=== PATIENT | female | born 1965 | race Caucasian/White ===

== ENCOUNTER 2017-05-14 12:17 | Day surgery (SDC) | payer OTHER ==
[~2017-05-14] VITALS: Ht 160 cm; Wt 104.3 kg
[~2017-05-14 12:17] MED LIST: Benztropine Mesy1 MG; DULO60; GABA100 PO; GLYBURIDE PO; Glucophage1000 MG PO; HYDPAM50 PO; INSULANPEN SC; METCAR500 PO; MIRT15 PO; RISP.25 PO
[2017-05-14] MEDS ORDERED: LOVA40 (12:44)
[2017-05-14] MEDS ORDERED: Levothyroxine200 MCG (12:45)
[2017-05-14] MEDS ORDERED: LAMO100 PO (12:45)
[2017-05-14] MEDS ORDERED: MULTI VITAMIN1 EACH (12:46)
[2017-05-14] MEDS ORDERED: Flovent 110 MCG12 GM (12:46)
[2017-05-14] MEDS ORDERED: CHOL10002 (12:46)
[2017-05-14] MEDS ORDERED: ALBU90OI61 (12:46)
[2017-05-14] MEDS ORDERED: FURO20 (12:47)
[2017-05-14] MEDS ORDERED: Lopressor 50 mg50 MG (12:48)
== END 2017-05-14 23:59 | disposition home or self-care (01) ==
LOC: ORSCSDS 12:17
PROVIDERS: Internal Medicine Gastroenterology
PROC: 0DBP8ZX Excision of Rectum, Via Natural or Artificial Opening Endoscopic, Diagnostic (ICD-10-PCS; principal; 2017-05-14 13:30)
PROC: 0DBN8ZX Excision of Sigmoid Colon, Via Natural or Artificial Opening Endoscopic, Diagnostic (ICD-10-PCS; principal; 2017-05-14 13:30)
DX: K92.1 Melena (principal); K62.1 Rectal polyp; K63.5 Polyp of colon; K64.8 Other hemorrhoids; E11.9 Type 2 diabetes mellitus without complications; E03.9 Hypothyroidism, unspecified; J45.909 Unspecified asthma, uncomplicated; F41.9 Anxiety disorder, unspecified; F31.9 Bipolar disorder, unspecified; Z87.891 Personal history of nicotine dependence; Z79.4 Long term (current) use of insulin; Z79.899 Other long term (current) drug therapy; E66.9 Obesity, unspecified; Z68.41 Body mass index [BMI] 40.0-44.9, adult
CPT/HCPCS: 82947; 88305; J7120

== ENCOUNTER 2017-05-16 16:20 | Emergency (ER) | payer OTHER ==
[~2017-05-16] VITALS: Ht 157.5 cm; Wt 104.3 kg
[~2017-05-16 16:20] MED LIST changes: +ALBU90OI61; +CHOL10002; +FURO20; +Flovent 110 MCG12 GM; +LAMO100 PO; +LOVA40; +Levothyroxine200 MCG; +Lopressor 50 mg50 MG; +MULTI VITAMIN1 EACH
[2017-05-16 16:43] LABS: BASOPHILS ABSOLUTE AUTO 0.05 K/mm3 (0.00-0.23); BASOPHILS PERCENT AUTO 1 % (0-2); EOSINOPHILS ABSOLUTE AUTO 0.13 K/mm3 (0.00-0.68); EOSINOPHILS PERCENT AUTO 2 % (0-6); Hematocrit 40.4 % (33.0-51.0); Hemoglobin 13.5 g/dL (11.5-16.0); IMMATURE GRAN ABSOLUTE AUTO 0.02 K/mm3 (0.00-0.10); IMMATURE GRAN PERCENT AUTO 0 % (0-1); LYMPHOCYTES ABSOLUTE AUTO 3.28 K/mm3 (0.84-5.20); LYMPHOCYTES PERCENT AUTO 42 % (21-46); MONOCYTES ABSOLUTE AUTO 0.53 K/mm3 (0.16-1.47); MONOCYTES PERCENT AUTO 7 % (4-13); Mean Corpuscular HGB 28.8 pg (26.0-34.0); Mean Corpuscular HGB Conc 33.4 g/dL (31.5-36.5); Mean Corpuscular Volume 86 fL (80-100); Mean Platelet Volume 9.6 fL (9.1-12.4); NEUTROPHILS ABSOLUTE AUTO 3.72 K/mm3 (1.96-9.15); NEUTROPHILS PERCENT AUTO 48 % (41-73); Platelet Count 348 K/mm3 (150-400); RDW Coefficient Variation 12.6 % (11.7-14.2); RDW Standard Deviation 39.7 fL (35.1-46.3); Red Blood Cell Count 4.68 M/mm3 (3.80-5.20); White Blood Cell Count 7.73 K/mm3 (4.00-11.30)
[2017-05-16 16:59] LABS: Alanine Aminotransfer (ALT/SGP 72 U/L (12-78); Alk Phos 93 U/L (50-136); Anion Gap 9 mmol/L (6-16); Aspartate Aminotrans (AST/SGOT 35 U/L (12-37); Bilirubin, Total 0.3 mg/dL (0.1-1.0); Blood Urea Nitrogen 19 mg/dL (8-24); Bun/Creatinine Ratio 20.2 (12.0-20.0); CO2, Blood 23 mmol/L (21-32); Chloride, Blood 104 mmol/L (98-108); Creatinine, Blood 0.94 mg/dL (0.40-1.00); Globulin, Blood 3.9 g/dL (2.2-4.0); Glomerular Filtration Rate >60 (60-); Glucose, Blood 161 mg/dL (70-99); Potassium, Blood 4.3 mmol/L (3.5-5.5); Sodium, Blood 136 mmol/L (136-145); Total Protein, Blood 7.9 g/dL (6.4-8.2)
[2017-05-16 18:40] LABS: Troponin I <0.015 ng/mL (0.000-0.040)
[2017-05-16 19:45] LABS: Source, Urine Clean Catch
[2017-05-16 19:50] LABS: Appearance, Urine Clear (Clear); Bilirubin, Urine Neg (Neg); Blood, Urine Neg (Neg); Color, Urine Yellow (P-Yellow); Glucose Qualitative, Urine Neg (Neg); Ketones, Urine Neg (Neg); Leukocyte Esterase, Urine 1+ (Neg); Nitrite, Urine Neg (Neg); Protein, Urine Neg (Neg); Urobilinogen, Urine NORM (Normal)
[2017-05-16 20:03] LABS: Bacteria Rare /hpf; Red Blood Cells, Urine 0-2 /hpf (0-2); Squamous Epithelial Cells Rare /hpf (Few); White Blood Cells, Urine 0-2 /hpf (0-5)
[2017-05-16 20:06] LABS: U Amphetamine Screen Not Detected; U Barbituate Screen Not Detected; U Benzodiazapine Screen Not Detected; U Buprenorphine Screen Not Detected; U Cannabinoids Screen Not Detected; U Cocaine Screen Not Detected; U Methadone Screen Not Detected; U Methamphetamine Screen Not Detected; U Opiates Screen Not Detected; U Oxycodone Screen Not Detected; U Phencyclidine Screen Not Detected; U Propoxyphene Screen Not Detected
== END 2017-05-16 22:29 | disposition home or self-care (01) ==
LOC: ER 16:20
PROVIDERS: Emergency Medicine
DX: R07.9 Chest pain, unspecified (principal); Z88.8 Allergy status to other drugs, medicaments and biological substances; Z88.5 Allergy status to narcotic agent; Z79.4 Long term (current) use of insulin; Z79.899 Other long term (current) drug therapy; Z87.891 Personal history of nicotine dependence
CPT/HCPCS: 36415; 71046; 80053; 81001; 83735; 84484; 85025; 85379; 93005; 93010; 96361; 96374; 96375; 99284; J1885; J2060; J7030

== ENCOUNTER 2017-07-17 12:40 | Emergency (ER) | payer OTHER ==
[~2017-07-17] VITALS: Ht 162.6 cm; Wt 101.2 kg
[2017-07-17] MEDS ORDERED: LISI20 PO (13:03)
[2017-07-17] MEDS ORDERED: BASAGLAR K100 UNIT/1 (13:04)
== END 2017-07-17 14:34 | disposition home or self-care (01) ==
LOC: ER 12:40
DX: S93.601A Unspecified sprain of right foot, initial encounter (principal); I10 Essential (primary) hypertension; E11.9 Type 2 diabetes mellitus without complications; E03.9 Hypothyroidism, unspecified; F31.9 Bipolar disorder, unspecified; F41.9 Anxiety disorder, unspecified; E78.00 Pure hypercholesterolemia, unspecified; Z88.8 Allergy status to other drugs, medicaments and biological substances; Z88.5 Allergy status to narcotic agent; Z79.899 Other long term (current) drug therapy; Z79.4 Long term (current) use of insulin; Z87.891 Personal history of nicotine dependence; W01.0XXA Fall on same level from slipping, tripping and stumbling without subsequent striking against object, initial encounter
CPT/HCPCS: 73630

== ENCOUNTER 2017-08-24 11:10 | Emergency (ER) | payer OTHER ==
[~2017-08-24] VITALS: Ht 160 cm; Wt 101.6 kg
[~2017-08-24 11:10] MED LIST changes: +BASAGLAR K100 UNIT/1; +LISI20 PO
[2017-08-24] MEDS ORDERED: NAPR500 PO (12:28)
[2017-08-24] MEDS ORDERED: Norco 5-325 Ta1 EACH PO (12:36)
[2017-08-24] MEDS ORDERED: Cyclobenzaprine5 MG PO (12:36)
== END 2017-08-24 12:45 | disposition home or self-care (01) ==
LOC: ER 11:10
DX: M79.661 Pain in right lower leg (principal); R20.0 Anesthesia of skin; M54.5 Low back pain; E11.9 Type 2 diabetes mellitus without complications; I10 Essential (primary) hypertension; E03.9 Hypothyroidism, unspecified; F31.9 Bipolar disorder, unspecified; F41.9 Anxiety disorder, unspecified; Z88.8 Allergy status to other drugs, medicaments and biological substances; Z88.5 Allergy status to narcotic agent; Z79.899 Other long term (current) drug therapy; Z79.4 Long term (current) use of insulin; Z87.891 Personal history of nicotine dependence
CPT/HCPCS: 99283

== ENCOUNTER 2017-09-02 17:09 | Emergency (ER) | payer OTHER ==
[~2017-09-02] VITALS: Ht 68.6 cm; Wt 105.7 kg
[~2017-09-02 17:09] MED LIST changes: +Cyclobenzaprine5 MG PO; +NAPR500 PO; +Norco 5-325 Ta1 EACH PO
[2017-09-02] MEDS ORDERED: Naprosyn500 MG PO (19:47)
[2017-09-02] MEDS ORDERED: Percocet 5-3251 EACH PO (19:47)
== END 2017-09-02 20:13 | disposition home or self-care (01) ==
LOC: ER 17:09
DX: M54.5 Low back pain (principal); Q72.91 Unspecified reduction defect of right lower limb; E11.9 Type 2 diabetes mellitus without complications; I10 Essential (primary) hypertension; E03.9 Hypothyroidism, unspecified; F32.9 Major depressive disorder, single episode, unspecified; F41.9 Anxiety disorder, unspecified; Z88.8 Allergy status to other drugs, medicaments and biological substances; Z88.5 Allergy status to narcotic agent; Z79.899 Other long term (current) drug therapy; Z79.4 Long term (current) use of insulin; Z87.891 Personal history of nicotine dependence; W19.XXXA Unspecified fall, initial encounter
CPT/HCPCS: 36415; 72100; 96374; 96375; 99284; J1200; J2765; J3010

== ENCOUNTER → 2018-09-13 | Outpatient (CLI) | payer OTHER ==
[~2018-09-13] MED LIST changes: +Naprosyn500 MG PO; +Percocet 5-3251 EACH PO
== END | disposition home or self-care (01) ==
LOC: LAB SHORT 13:01 → LAB EV 13:01
DX: N39.0 Urinary tract infection, site not specified (principal)
CPT/HCPCS: 87077; 87086; 87186

== ENCOUNTER 2020-05-07 12:02 | Inpatient (IN) | payer OTHER ==
[~2020-05-07] VITALS: Ht 160 cm; Wt 127.3 kg
[~2020-05-07 12:02] MED LIST changes: -ALBU90OI61; -BASAGLAR K100 UNIT/1; -CHOL10002; -DULO60; -Flovent 110 MCG12 GM; -LOVA40; -Levothyroxine200 MCG; -Lopressor 50 mg50 MG; -MIRT15 PO
[2020-05-07 12:40] LABS: BASOPHILS ABSOLUTE AUTO 0.02 K/mm3 (0.00-0.23); BASOPHILS PERCENT AUTO 1 % (0-2); EOSINOPHILS ABSOLUTE AUTO 0.01 K/mm3 (0.00-0.68); EOSINOPHILS PERCENT AUTO 0 % (0-6); Hematocrit 35.1 % (33.0-51.0); Hemoglobin 11.1 g/dL (11.5-16.0); IMMATURE GRAN ABSOLUTE AUTO 0.03 K/mm3 (0.00-0.10); IMMATURE GRAN PERCENT AUTO 1 % (0-1); LYMPHOCYTES PERCENT AUTO 21 % (21-46); MONOCYTES ABSOLUTE AUTO 0.28 K/mm3 (0.16-1.47); MONOCYTES PERCENT AUTO 7 % (4-13); Mean Corpuscular HGB 26.6 pg (26.0-34.0); Mean Corpuscular HGB Conc 31.6 g/dL (31.5-36.5); Mean Corpuscular Volume 84 fL (80-100); Mean Platelet Volume 9.6 fL (9.1-12.4); NEUTROPHILS ABSOLUTE AUTO 2.74 K/mm3 (1.96-9.15); NEUTROPHILS PERCENT AUTO 71 % (41-73); Platelet Count 283 K/mm3 (150-400); RDW Standard Deviation 48.8 fL (35.1-46.3); Red Blood Cell Count 4.18 M/mm3 (3.80-5.20); White Blood Cell Count 3.88 K/mm3 (4.00-11.30)
[2020-05-07 13:04] LABS: Alanine Aminotransfer (ALT/SGP 34 U/L (12-78); Albumin, Blood 3.2 g/dL (3.4-5.0); Albumin/Globulin Ratio 0.8 (0.8-1.8); Alk Phos 108 U/L (50-136); Anion Gap 7 mmol/L (6-16); Aspartate Aminotrans (AST/SGOT 34 U/L (12-37); Bilirubin, Total 0.3 mg/dL (0.1-1.0); Blood Urea Nitrogen 15 mg/dL (8-24); Bun/Creatinine Ratio 17.4 (12.0-20.0); CO2, Blood 28 mmol/L (21-32); Calcium, Blood 8.8 mg/dL (8.5-10.1); Chloride, Blood 102 mmol/L (98-108); Creatinine, Blood 0.86 mg/dL (0.40-1.00); Globulin, Blood 4.1 g/dL (2.2-4.0); Glomerular Filtration Rate >60 (60-); Glucose, Blood 223 mg/dL (70-99); Potassium, Blood 4.1 mmol/L (3.5-5.5); Sodium, Blood 137 mmol/L (136-145); Total Protein, Blood 7.3 g/dL (6.4-8.2)
[2020-05-07] MEDS ORDERED: VITAMIN D31000 UNI1 PO (14:29)
[2020-05-07] MEDS ORDERED: LEVSOD137 PO (14:29)
[2020-05-07] MEDS ORDERED: GLIP10 PO (14:31)
[2020-05-07] MEDS ORDERED: ALOGLIPTIN PO (14:31)
[2020-05-07] MEDS ORDERED: Lopressor 50 mg50 MG PO (14:32)
[2020-05-07] MEDS ORDERED: FLOVENT HFA12 GM INH (14:33)
[2020-05-07] MEDS ORDERED: HYDPAM25 PO (14:33)
[2020-05-07] MEDS ORDERED: ALBU90OI61 INH (14:34)
[2020-05-07] MEDS ORDERED: GABAPENTIN600 MG PO (14:50)
[2020-05-07] MEDS ORDERED: HYDROCODONE-AC1 EA11 PO (14:51)
[2020-05-07] MEDS ORDERED: CHLO25B PO (14:52)
[2020-05-07] MEDS ORDERED: CYCL10 PO (14:53)
[2020-05-07] MEDS ORDERED: LOSARTAN POTAS100 M1 PO (14:54)
[2020-05-07] MEDS ORDERED: LAMO100 PO (14:55)
[2020-05-07] MEDS ORDERED: DULO30 PO (14:56)
[2020-05-07] MEDS ORDERED: Lovastatin20 MG PO (14:57)
[2020-05-07] MEDS ORDERED: PRAM.125 PO (14:57)
[2020-05-07] MEDS ORDERED: NAPR500 PO (14:58)
[2020-05-07] MEDS ORDERED: MIRT15 PO (14:59)
[2020-05-07] MEDS ORDERED: STRIVERDI RESPIM4 G1 INH (14:59)
[2020-05-07] MEDS ORDERED: BASAGLAR K100 UNIT/1 SC (15:01)
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
[2020-05-08 04:32] LABS: Hematocrit 33.3 % (33.0-51.0); Hemoglobin 10.6 g/dL (11.5-16.0); Mean Corpuscular HGB 26.4 pg (26.0-34.0); Mean Corpuscular HGB Conc 31.8 g/dL (31.5-36.5); Mean Corpuscular Volume 83 fL (80-100); Mean Platelet Volume 9.7 fL (9.1-12.4); Platelet Count 301 K/mm3 (150-400); RDW Coefficient Variation 15.8 % (11.7-14.2); RDW Standard Deviation 47.8 fL (35.1-46.3); Red Blood Cell Count 4.01 M/mm3 (3.80-5.20); White Blood Cell Count 4.25 K/mm3 (4.00-11.30)
[2020-05-08 04:55] LABS: Alanine Aminotransfer (ALT/SGP 31 U/L (12-78); Albumin, Blood 2.9 g/dL (3.4-5.0); Albumin/Globulin Ratio 0.7 (0.8-1.8); Alk Phos 102 U/L (50-136); Anion Gap 7 mmol/L (6-16); Aspartate Aminotrans (AST/SGOT 31 U/L (12-37); Bilirubin, Total 0.3 mg/dL (0.1-1.0); Blood Urea Nitrogen 19 mg/dL (8-24); Bun/Creatinine Ratio 20.7 (12.0-20.0); CO2, Blood 30 mmol/L (21-32); Calcium, Blood 9.2 mg/dL (8.5-10.1); Chloride, Blood 99 mmol/L (98-108); Creatinine, Blood 0.92 mg/dL (0.40-1.00); Globulin, Blood 4.4 g/dL (2.2-4.0); Glomerular Filtration Rate >60 (60-); Glucose, Blood 298 mg/dL (70-99); Magnesium, Blood 2.1 mg/dL (1.6-2.4); Potassium, Blood 4.5 mmol/L (3.5-5.5); Sodium, Blood 136 mmol/L (136-145); Total Protein, Blood 7.3 g/dL (6.4-8.2)
[2020-05-08 05:56] LABS: BASOPHILS PERCENT MAN 0 % (0-2); EOSINOPHILS PERCENT MAN 0 % (0-6); LYMPHOCYTES ABSOLUTE MAN 1.23 K/mm3 (0.84-5.20); LYMPHOCYTES PERCENT MAN 29 % (21-46); MONOCYTES ABSOLUTE MAN 0.38 K/mm3 (0.16-1.47); MONOCYTES PERCENT MAN 9 % (4-13); NEUTROPHILS ABSOLUTE MAN 2.63 K/mm3 (1.96-9.15); SEG NEUTROPHILS PERCENT MAN 62 % (41-73); TOTAL CELLS COUNTED 100
--- NOTE | 2020-05-08 06:13 | NUR ---
SHIFT SUMMARY PT ALERT AND ORIENTED X 4. HR STABLE. BP STABLE. PT REPORTS NO CP OR PRESSURE. OXYGEN DEMANDS INCREASED T/O SHIFT. PROVIDER INFORMED. RESPIRATORY CARE INFORMED. PT NOW ON AIRVO AT 50 L, 75% FIO2. OXYGEN SATURAITON MAINTAINED ABOVE 90%. PT ENCOURAGED TO PRONE T/O SHIFT. PT ABLE TO TURN SELF NEEDED IN BED. PT IND AND UP TO COMMODE NEEDED. WILL CONTINUE TO MONITOR UNTIL REPORT GIVEN TO DAYSHIFT RN.
--- NOTE | 2020-05-08 17:57 | NUR ---
SHIFT SUMMARY; ASSUMED CARE AT 0700, REPORT FROM GABI LLOYD. LAYING ON RIGHT SIDE IN BED, AIRVO AT 50L AT 75%. A/A/OX4. SELF PRONING PER WASHER CARCASS RN. UP TO CHAIR MID MORNING AND REMAINED SITTING UP THROUGHOUT SHIFT. SBA TO BEDSIDE COMMODE NEEDED. INCENTIVE SPIROMETER WITH TEACHING BY RT, AIRVO 71% AT 60L TO MAINTAIN SATS OF 89-92%. DYSPNEA WITH EXERTION, DRY NON PRODUCTIVE COUGH, L/S DIM THROUGHOUT. COOPERATIVE AND PARTICIPATES IN CARE. WILL CONTINUE TO MONITOR AND TREAT UNTIL CHANGE OF SHIFT.
--- NOTE | 2020-05-09 05:12 | NUR ---
SHIFT SUMMARY PT A&O X4, CHEERFUL & TALKATIVE. SPO2 RANGING 85-92% ON AIRVO @ 60L, FIO2 90%. PT DESAT TO 80's, SOMETIMES 70's W/ OUT OF BED ACTIVITY. PT PRONING THIS SHIFT W/ LITTLE TO NO CHANGE IN SPO2 FROM WHEN LAYING ON SIDE OR SITTING UPRIGHT. PT DENIES SOB. RESPIRATIONS EVEN & UNLABORED. VSS. MONITOR SHOWING NSR, HR 80's-90's.
--- NOTE | 2020-05-09 16:40 | NUR ---
NOTIIFED DR RIVAS OF [address] [place] [address]; NO NEW ORDERS AT THIS TIME, WILL CONTINUE TO MONITOR.
--- NOTE | 2020-05-09 17:31 | NUR ---
SHIFT SUMMARY PT A&Ox4; CALM AND COOPERATIVE WITH CARE. PT UP IN CHAIR FOR MAJORITY OF SHIFT. PT DENIES PAIN, CHEST PAIN, NAUSEA AND DIZZINESS. SOB WITH EXERTION, ON AIRVO TITRATED T/O SHIFT. THIS AM PT REPORTS FEELING LIKE SHE IS ABLE TO TAKE DEEP BREATHS AGAIN. PT C/O DECREASED HEARING AND FEELING OF FULLNESS IN EAR; DR RIVAS NOTIIFED. VSS. NO OTHER ACUTE CHANGES NOTED. WILL CONTINUE TO MONITOR UNTIL REPORT GIVEN TO ONCOMING RN.
--- NOTE | 2020-05-09 21:32 | NUR ---
ELEVATED CBG / BIPAP / CALL TO MD CALL TO MD PELAEZ TO REPORT CBG 481. MD W/ NEW ORDER TO CHANGE CURRENT AC INSULIN COVERAGE TO AC & HS COVERAGE. PT ALSO ON AIRVO W/ SNORING & DESAT WHILE SLEEPING. RT RECOMMENDATION OF TRYING CPAP. MD PELAEZ W/ NEW ORDER FOR RT BIPAP/CPAP PROTOCOL.
--- NOTE | 2020-05-10 06:28 | NUR ---
SHIFT SUMMARY PT A&O X4, PLEASANT, CALM & COOPERATIVE. PT ON AIRVO @ 60L, FIO2 90%, THEN TRANSITIONED TO CPAP THIS SHIFT W/ PT TOLERATING WELL W/ SPO2 88-94%. PT REPORTS "I SLEPT LIKE A BABY WITH THAT MASK ON." PT FURTHER REPORTS FEELING LIKE BREATHING HAS IMPROVED D/T THE CPAP. VSS. MONITOR SHOWING SR, HR 80's-90's. WILL CONTINUE TO MONITOR & PROVIDE CARE UNTIL REPORT OFF TO DAY SHIFT RN.
--- NOTE | 2020-05-10 13:08 | NUR ---
PER PT REQUEST SHE WAS PLACED BACK ONTO HER BIPAP MACHINE. O2 SATS NOW 99% ON BIPAP. RT IS AWARE OF THE SWITCH. AT THE BEDSIDE AT THIS TIME. WILL KAMAR.
[2020-05-10 17:22] LABS: Glucose, Blood 484 mg/dL (70-99)
--- NOTE | 2020-05-10 17:26 | NUR ---
CALLED DR Thomas- PT BG 484. LAST BG 356 AND PT RECIEVED 10 UNITS. ORDER RECIEVED FOR AN ADDITIONAL 10 UNITS [facility] NOW FOR A TOTAL OF 20 UNITS.
--- NOTE | 2020-05-10 18:08 | NUR ---
SHIFT SUMMARY- PT BG'S HAVE BEEN ELEVATED A LITTLE MORE EACH MEAL AT DINNER TIME A LAB DRAW WAS DONE BG 484 SEE PREVIOUS NOTES FOR DETAILS. WILL RECHECK PT BG PRIOR TO SHIFT CHANGE. PT STATED SHE HAS A TERRIBLE HEADACHE UNRELIEVED BY TYLENOL. PT STATED AT THE TIME OF THE HIGH SUGAR THAT SHE WAS FEELING EXTRA SLEEPY WELL. PT SITTING UP IN THE CHAIR, SATS 89% ON AIRVO AT 55L FLOW 90-93% FIO2. PT DENIES SOB AT THIS TIME. PT INDEPENDENT TO THE BSC, HOWEVER WILL CALL FOR STAFF ASSISTANCE WITH THE LINES AND TUBES TO USE THE COMMODE. PT FREQUENTLY WAITS FOR CARE ROUNDING TO ASK FOR ANYTHING. PT VERY PLEASENT AND IS VERY COMPLIANT WITH TREATMENT AND CARE. BG RECHECK PLANNED FOR 1829. PT AWARE. WILL PASS ON IN REPORT TO NIGHT RN.
--- NOTE | 2020-05-10 18:56 | NUR ---
BG RECHECK SHOWED HI ON THE POC GLOCUSE METER. CALLED LAB FOR ANOTHER STAT BG LAB DRAW. RADIAGRAPH OPERATOR NOTIFIED. LAB JUST ABI THE LAB NOW. RADIAGRAPH OPERATOR AWARE, WILL PASS ON TO NIGHT RN, NIGHT TIME RADIAGRAPH OPERATOR MADE AWARE WELL.
[2020-05-10 19:30] LABS: Glucose, Blood 505 mg/dL (70-99)
--- NOTE | 2020-05-10 21:00 | NUR ---
ASSUMED CARE RECEIVED REPORT FROM GABI MORRIS.
[2020-05-11 05:18] LABS: Hematocrit 32.9 % (33.0-51.0); Hemoglobin 10.6 g/dL (11.5-16.0); Mean Corpuscular HGB 26.1 pg (26.0-34.0); Mean Corpuscular HGB Conc 32.2 g/dL (31.5-36.5); Mean Corpuscular Volume 81 fL (80-100); Platelet Count 396 K/mm3 (150-400); RDW Coefficient Variation 14.9 % (11.7-14.2); RDW Standard Deviation 44.4 fL (35.1-46.3); Red Blood Cell Count 4.06 M/mm3 (3.80-5.20); White Blood Cell Count 8.67 K/mm3 (4.00-11.30)
--- NOTE | 2020-05-11 05:27 | NUR ---
SHIFT SUMMARY PT ALERT AND ORIENTED X 4. PT SLEPT T/O SHIFT ON CPAP. 100%FIO2. OXYGEN SATURATION MAINTAINED ABOVE 90%. PT IN RECLINER T/O SHIFT. HR STABLE. BP STABLE. PT REPORTS NO CP OR PRESSURE. PHYSICIAN NOTIFIED OF HIGH CGB LEVEL AT 2200. 10 UNITS HUMALOG ORDERED AND GIVEN,SEE EMAR. PT ABLE TO TURN SELF NEEDED. WILL CONTINUE TO MONITOR UNTIL REPORT GIVEN TO DAYSHIFT RN.
[2020-05-11 05:54] LABS: Anion Gap 7 mmol/L (6-16); Blood Urea Nitrogen 32 mg/dL (8-24); Bun/Creatinine Ratio 34.5 (12.0-20.0); CO2, Blood 32 mmol/L (21-32); Calcium, Blood 9.5 mg/dL (8.5-10.1); Chloride, Blood 92 mmol/L (98-108); Creatinine, Blood 0.93 mg/dL (0.40-1.00); Glomerular Filtration Rate >60 (60-); Glucose, Blood 251 mg/dL (70-99); Sodium, Blood 131 mmol/L (136-145)
--- NOTE | 2020-05-11 12:07 | NUR ---
PATIENT'S CBG 351, DR. RIVAS NOTIFIED.
--- NOTE | 2020-05-11 18:18 | NUR ---
SHIFT SUMMARY NO ACUTE EVENTS THIS SHIFT, VSS. PATIENT ALERT AND ORIENTED, COOPERATIVE WITH CARE. PATIENT ENDORSES MOTIVATION TO INCREASE PRONING, ACTIVITY, AND TO GET BETTER AND GET HOME. PATIENT ON AIRVO THIS SHIFT, RT ABLE TO TITRATE O2 DELIVERY THROUGHOUT THIS SHIFT. PATIENT HAS INTERMITTENT COUGHING FITS, O2 WILL DECREASE TO HIGH 80S BUT RETURNS TO MID-HIGH 90S QUICKLY. PATIENT ABLE TO AMBULATE INDEPENDENTLY NEAR BED D/T LINE MANAGEMENT RESTRICTIONS. BLOOD GLUCOSE REMAINS ELEVATED, DISCUSSED WITH DR. RIVAS.
--- NOTE | 2020-05-11 23:17 | NUR ---
PHYSICIAN NOTIFIED PHYSICIAN NOTIFIED OF PT'S HIGH CBG LEVEL AT 463. 10 UNITS OF HUMALOG ORDERED PER PHYSICIAN.
--- NOTE | 2020-05-12 05:56 | NUR ---
SHIFT SUMMARY PT ALERT AND ORIENTED X 4. HR STABLE. BP STABLE. PT REPORTS NO CP OR PRESSURE. PT WORE CPAP T/O SHIFT. FIO2 AT 85%, OXYGEN SATURATION MAINTAINED ABOVE 95%. PT IND TO COMMODE. PRONED T/O SHIFT. PHYSICIAN NOTIFIED OF HIGH CGB LEVEL, SEE NOTE. ORDERS PROVIDED, SEE EMAR. WILL CONTINUE TO MONITOR UNTIL REPORT GIVEN TO LAKSHMI ASHLEY.
--- NOTE | 2020-05-12 18:03 | NUR ---
SHIFT SUMMARY NO ACUTE EVENTS THIS SHIFT, VSS. PATIENT ON AIRVO, TITRATED TO 55 L AT 60% O2. PATIENT TOLERATED WELL, O2 SATS IN 90S THROUGHOUT SHIFT. PATIENT ABLE TO AMBULATE INDEPENDENTLY IN ROOM, GOING BETWEEN BEING UP IN CHAIR TO LAYING IN BED IN PRONE POSITION. PATIENT ALERT AND ORIENTED, COOPERATIVE WITH CARE. DENIES PAIN THIS SHIFT, COMPLAINS OF CONGESTION AND MEDICATED PER EMAR.
[2020-05-12 21:43] LABS: Glucose, Blood 495 mg/dL (70-99)
--- NOTE | 2020-05-13 06:29 | NUR ---
SHIFT SUMMARY PT WAS PLEASENT AND COOPERATIVE WITH CARE. SHE WAS ALERT AND ORIENTED AND INDEPENDENT IN THE ROOM. PT WAS ON AIRVO AT START OF SHIFT AT 55LPM AND 60%O2 WITH SATS >90%. PT WENT ON CPAP WHEN SLEEPING AT 12 AND 60%O2, O2 SATS WERE >98% SO PT WAS TAPERED DOWN TO 40%O2 WITH SATS >94%. PT HAD VERY LITTLE SOB WHEN AMBULATING AND O2 SATS HAD LITTLE TO NO DROP. VITALS WERE STABLE AND PT REPORTED HAVING NO PAIN. PT HAD A QUIET UNEVENTFUL NIGHT.
--- NOTE | 2020-05-13 17:22 | NUR ---
SHIFT SUMMARY NO ACUTE EVENTS THIS SHIFT. PATIENT ALERT AND ORIENTED, COOPERATIVE WITH CARE. PATIENT SWITCHED FROM AIRVO TO HIGH FLOW NASAL CANNULA BY RT THIS SHIFT AT 10 L. PATIENT TOLERATING WELL, AT REST PATIENT O2 SAT IN 90S, WITH ACTIVITY WILL DECREASE TO MID-80S BUT WILL INCREASE WITH FOCUSED BREATHING THROUGH NOSE. PATIENT'S BLOOD GLUCOSE ELEVATED, DR. MASON NOTIFIED AND ONE TIME LONG ACTING OF 10 UNITS SEMGLEE GIVEN, 10 UNITS IN MORNING ADDED TO START TOMORROW.
--- NOTE | 2020-05-13 22:23 | NUR ---
ELEVATED BLOOD GLUCOSE PT EVENING BG WAS ELEVATED. CALL PLACED TO MD SMYTH. MD SMYTH WITH ORDERS TO CHANGE MED SLIDING SCALE TO HIGH SLIDING SCALE. SEE EMAR.
--- NOTE | 2020-05-14 05:48 | NUR ---
SHIFT SUMMARY NO ACUTE CHANGES THIS SHIFT. PT A&OX4. PLEASANT. SP02>90% ON 10L HIFLO NC AND CPAP AT NIGHT. PT HAS OCCASIONAL PRODUCTIVE COUGH. TELEMETRY READS SR, HR 80'S. PT UP TO BATHROOM OR BSC W/ MINIMAL ASSISTSANCE. PT DID HAVE ELEVATED BLOOD GLUCOSE THIS SHIFT, SEE PREVIOUS NOTE. PT C/O OF BACK PAIN AT END OF SHIFT. HEATING PAD PLACED W/ SOME RELIEF. CALL LIGHT IN REACH. WILL GIVE REPORT TO ONCOMING NURSE.
--- NOTE | 2020-05-14 06:21 | NUR ---
On 05/13/20 at 18:15 PT in room PCU 15 called I went into see what the PT needed and PT asked me if I would get someone to clean her bathroom toilet for her as it was dirty and had not been cleaned at all and she was very upset by it and made me aware that she had taken pictures of it and sent them to her [id number] before she called to let someone know about it. PT said had mentioned it prior to me coming onto shift about it but nothing had happened, I am not aware of exact details but I asked the nurse who had her and she said she had wiped it off pror in day not sure if she had met the commode or toilet because i myself cleaned it for the PT when went in at 18:15 and it was dirty and not been cleaned.
--- NOTE | 2020-05-14 18:10 | NUR ---
SHIFT SUMMARY: PT CONTINUES A&OX4, RESPIRATIONS EVEN AND UNLABORED AT REST, O2 FLOW TITRATED TO 5 L/MIN VIA HUMIDIFIED HIFLO AND PT TOLERATING WELL WITH SATS MAINTAINED >90%, OCCASIONAL COUGH PRODUCTIVE OF WHITE THICK SPUTUM, SINUS RHYTHM/TACH ON MONITOR. PT CONTINUES INDEPENDENT IN ROOM WITH MINIMAL DESATURATION WITH ACTIVITY, ADMISSION STATUS CHANGED TO MEDICAL W/NO TELEMETRY. PT BLOOD GLUCOSE LEVELS CONTINUE ELEVATED, DR MASON NOTIFIED OF 1540 RESULTS WITH NO ORDER TO CHANGE MEDICATION, PT MEDICATED PER EMAR. AT THIS TIME, PT IS RESTING QUIETLY IN ROOM WITH TV ON. WILL CONTINUE TO MONITOR AND TREAT ACCORDINGLY UNTIL CHANGE OF SHIFT.
[2020-05-15 03:34] LABS: BASOPHILS ABSOLUTE AUTO 0.01 K/mm3 (0.00-0.23); BASOPHILS PERCENT AUTO 0 % (0-2); EOSINOPHILS ABSOLUTE AUTO 0.24 K/mm3 (0.00-0.68); EOSINOPHILS PERCENT AUTO 2 % (0-6); Hematocrit 30.7 % (33.0-51.0); IMMATURE GRAN ABSOLUTE AUTO 0.09 K/mm3 (0.00-0.10); IMMATURE GRAN PERCENT AUTO 1 % (0-1); LYMPHOCYTES ABSOLUTE AUTO 1.49 K/mm3 (0.84-5.20); LYMPHOCYTES PERCENT AUTO 14 % (21-46); MONOCYTES ABSOLUTE AUTO 0.82 K/mm3 (0.16-1.47); MONOCYTES PERCENT AUTO 7 % (4-13); Mean Corpuscular HGB 26.3 pg (26.0-34.0); Mean Corpuscular HGB Conc 32.6 g/dL (31.5-36.5); Mean Corpuscular Volume 81 fL (80-100); Mean Platelet Volume 9.6 fL (9.1-12.4); NEUTROPHILS ABSOLUTE AUTO 8.38 K/mm3 (1.96-9.15); NEUTROPHILS PERCENT AUTO 76 % (41-73); Platelet Count 529 K/mm3 (150-400); RDW Coefficient Variation 14.8 % (11.7-14.2); RDW Standard Deviation 43.3 fL (35.1-46.3); White Blood Cell Count 11.03 K/mm3 (4.00-11.30)
[2020-05-15 04:13] LABS: Anion Gap 4 mmol/L (6-16); Blood Urea Nitrogen 28 mg/dL (8-24); Bun/Creatinine Ratio 30.2 (12.0-20.0); CO2, Blood 33 mmol/L (21-32); Calcium, Blood 9.1 mg/dL (8.5-10.1); Chloride, Blood 93 mmol/L (98-108); Creatinine, Blood 0.93 mg/dL (0.40-1.00); Glomerular Filtration Rate >60 (60-); Glucose, Blood 183 mg/dL (70-99); Potassium, Blood 3.8 mmol/L (3.5-5.5); Sodium, Blood 130 mmol/L (136-145)
--- NOTE | 2020-05-15 06:01 | NUR ---
SHIFT SUMMARY NO ACUTE CHANGES THIS SHIFT. PT A&OX4. PLEASANT. PT SITTING UP IN RECLINER AT BEGINNING OF SHIFT. DENIES SOB. SP02>90% ON 5L HIFLO. PT WORE CPAP WHILE SLEEPING. PT MED NO TELE STATUS. VSS. PT UP INDEPENDENTLY TO BATHROOM MULTIPLE TIMES T/O SHIFT, AMBULATORY AROUND ROOM. PT C/O OF DRY NOSTRILS. INCREASED HUMIDITY ON CPAP/HIFLO AND MEDICATED W/ NASAL SPRAY X2 THIS SHIFT. CALL LIGHT IN REACH. WILL GIVE REPORT TO ONCOMING NURSE.
--- NOTE | 2020-05-15 15:33 | NUR ---
PATIENT REQUEST TO START TAKING HER REMERON 45 MG. OK TO ADD TO EMASR PER .
--- NOTE | 2020-05-15 15:47 | NUR ---
ALERT. ORIENTED. DENIES ANY DISCOMFORT. OXYGEN AT 3 LPM HIGH FLOW WITH SATS ABOVE 90%. STEADY GAIT IN ROOM. USES I.S. SPEAKS IN COMPLETE SENTENCES. TELE WAS D'C. IV RT HAND PATENT. NO ACUTE CHANGES. WCTM
--- NOTE | 2020-05-16 07:18 | NUR ---
PT with underlying health conditions including diabetes continues to require oxygen to have sats greater than 90%. On 3 l high flow NC sats 90 to 94%. Wears CPAP with 3 l bled in at S. Up indep in room.Appetite good tolerating activity with oxygen 3 l nc.
--- NOTE | 2020-05-16 18:05 | NUR ---
SHIFT SUMMARY PT ALERT AND ORIENTED X 4. IND IN ROOM. HR STABLE. BP STABLE. OXYGEN SATURATION MAINTAINED ABOVE 90% ON 2-3 L OF OXYGEN VIA NC. PT WORE CPAP T/O SHIFT. PT REPORTS NO CP OR PRESSURE. WILL CONTINUE TO MONITOR UNTIL REPORT GIVEN TO NIGHTSHIFT RN.
--- NOTE | 2020-05-16 22:47 | NUR ---
CBG 396. HOSPITALIST [employer] NOTIFIED AND REPORTS TO CONTINUE TO MONITOR. SCHEDULE HUMALOG AND SEMGLEE GIVEN PER ORDERS. CALL LIGHT IN REACH.
[2020-05-17 04:28] LABS: Anion Gap 7 mmol/L (6-16); Blood Urea Nitrogen 31 mg/dL (8-24); Bun/Creatinine Ratio 30.4 (12.0-20.0); CO2, Blood 33 mmol/L (21-32); Calcium, Blood 9.3 mg/dL (8.5-10.1); Chloride, Blood 94 mmol/L (98-108); Creatinine, Blood 1.02 mg/dL (0.40-1.00); Glomerular Filtration Rate >60 (60-); Glucose, Blood 61 mg/dL (70-99); Potassium, Blood 3.5 mmol/L (3.5-5.5); Sodium, Blood 134 mmol/L (136-145)
--- NOTE | 2020-05-17 04:46 | NUR ---
SHIFT SUMMARY PATIENT CBG 396 AND HOSPITALIST [employer] REPORTS NO NEW ORDERS. AXOX 4 AND INDEPENDENT IN THE ROOM. ON 2L O2 NC. VSS/AFEBRILE. DENIES PAIN AND N/V. PIV REMAINS INTACT. USES CPAP AT NIGHT. RT IN T/O SHIFT. PATIENT REPORTS PLAYING GAMES ON HER PHONE. COOPERATIVE WITH CARE. CALL LIGHT IN REACH. BED IN LOWEST POSITION. WILL CONTINUE TO MONITOR UNTIL DAY SHIFT NURSE ASSUMES CARE.
[2020-05-17] MEDS ORDERED: DEXT30SU PO (12:14)
[2020-05-17] MEDS ORDERED: LIDOCAINE1 EAC1 TOP (12:15)
--- NOTE | 2020-05-17 13:22 | NUR ---
PT DISCHARGED TO HOME TODAY, PT TO RESUME HOME MEDICATION EXCEPT FOR XARELTO, PT WAS INSTRUCTED TO STOP TAKING IT PER DR RENETTA COYNE WNL. HOME O2 EVAL DONE PT REQUIRING 2L OF O2 AT ALL TIMES, O2 ORDERED AND DELIVERED VIA [facility]. DISCHARGE MEDICATIONS AND INSTRUCTIONS DISCLOSED WITH THE PT, TO QUARANTINE TIL 11TH PER INFECTIOUS DSE. PCP FOLLOW UP APPT MADE WELL. NO OTHER ISSUES PRIOR TO DISCHARGE VITALS HAS BEEN STBALE, INDEPENDENT IN THE ROOM. PRESCRIPTION SENT TO [facility]. IV DC'D. PT'S SON PROVIDED TRANSPORTATION, PT ACCOMPANIED BY PCT VIA WHEELCHAIR.
== END 2020-05-17 13:19 | disposition home or self-care (01) | DRG 177 ==
LOC: ER 12:02 → ERHOLD 13:46 → PCU 13:46 → ERHOLD 13:47 → PCU 17:41
PROVIDERS: Emergency Medicine; Internal Medicine; Nurse Practitioner Acute Care; ADMIT Internal Medicine
PROC: XW033E5 Introduction of Remdesivir Anti-infective into Peripheral Vein, Percutaneous Approach, New Technology Group 5 (ICD-10-PCS; principal; 2020-05-07)
PROC: XW033E5 Introduction of Remdesivir Anti-infective into Peripheral Vein, Percutaneous Approach, New Technology Group 5 (ICD-10-PCS; 2020-05-08)
PROC: XW033E5 Introduction of Remdesivir Anti-infective into Peripheral Vein, Percutaneous Approach, New Technology Group 5 (ICD-10-PCS; 2020-05-09)
PROC: 5A09357 Assistance with Respiratory Ventilation, Less than 24 Consecutive Hours, Continuous Positive Airway Pressure (ICD-10-PCS; 2020-05-09)
PROC: XW033E5 Introduction of Remdesivir Anti-infective into Peripheral Vein, Percutaneous Approach, New Technology Group 5 (ICD-10-PCS; 2020-05-10)
PROC: XW033E5 Introduction of Remdesivir Anti-infective into Peripheral Vein, Percutaneous Approach, New Technology Group 5 (ICD-10-PCS; 2020-05-11)
DX: U07.1 COVID-19 (principal); J96.01 Acute respiratory failure with hypoxia; J12.82 Pneumonia due to coronavirus disease 2019; F11.20 Opioid dependence, uncomplicated; Z68.42 Body mass index [BMI] 45.0-49.9, adult; Z79.4 Long term (current) use of insulin; F31.9 Bipolar disorder, unspecified; Z87.891 Personal history of nicotine dependence; E66.01 Morbid (severe) obesity due to excess calories; I10 Essential (primary) hypertension; F41.1 Generalized anxiety disorder; E11.9 Type 2 diabetes mellitus without complications; H66.90 Otitis media, unspecified, unspecified ear; E03.9 Hypothyroidism, unspecified
CPT/HCPCS: 36415; 36416; 71045; 80048; 80053; 82947; 83605; 83735; 85025; 85027; 85379; 87040; 94640; 94660; 94761; 94762; 96365; 96372-59; 96375; 99285-25; A9270; J1100; J1650; J1815; J1940; J7050

== ENCOUNTER 2020-06-02 08:49 | Emergency (ER) | payer OTHER ==
[~2020-06-02] VITALS: Ht 160 cm; Wt 134.7 kg
[~2020-06-02 08:49] MED LIST changes: +ALBU90OI61 INH; +ALOGLIPTIN PO; +BASAGLAR K100 UNIT/1 SC; +CHLO25B PO; +CYCL10 PO; +DEXT30SU PO; +DULO30 PO; +FLOVENT HFA12 GM INH; +GABAPENTIN600 MG PO; +GLIP10 PO; +HYDPAM25 PO; +HYDROCODONE-AC1 EA11 PO; +LEVSOD137 PO; +LIDOCAINE1 EAC1 TOP; +LOSARTAN POTAS100 M1 PO; +Lopressor 50 mg50 MG PO; +Lovastatin20 MG PO; +MIRT15 PO; +PRAM.125 PO; +STRIVERDI RESPIM4 G1 INH; +VITAMIN D31000 UNI1 PO
[2020-06-02 09:50] LABS: BASOPHILS ABSOLUTE AUTO 0.07 K/mm3 (0.00-0.23); BASOPHILS PERCENT AUTO 1 % (0-2); EOSINOPHILS ABSOLUTE AUTO 0.57 K/mm3 (0.00-0.68); EOSINOPHILS PERCENT AUTO 7 % (0-6); Hematocrit 31.6 % (33.0-51.0); Hemoglobin 9.7 g/dL (11.5-16.0); IMMATURE GRAN ABSOLUTE AUTO 0.02 K/mm3 (0.00-0.10); IMMATURE GRAN PERCENT AUTO 0 % (0-1); LYMPHOCYTES ABSOLUTE AUTO 1.28 K/mm3 (0.84-5.20); LYMPHOCYTES PERCENT AUTO 16 % (21-46); MONOCYTES ABSOLUTE AUTO 0.73 K/mm3 (0.16-1.47); MONOCYTES PERCENT AUTO 9 % (4-13); Mean Corpuscular HGB 25.9 pg (26.0-34.0); Mean Corpuscular HGB Conc 30.7 g/dL (31.5-36.5); Mean Corpuscular Volume 85 fL (80-100); NEUTROPHILS ABSOLUTE AUTO 5.61 K/mm3 (1.96-9.15); NEUTROPHILS PERCENT AUTO 68 % (41-73); Platelet Count 366 K/mm3 (150-400); RDW Coefficient Variation 15.5 % (11.7-14.2); RDW Standard Deviation 47.5 fL (35.1-46.3); Red Blood Cell Count 3.74 M/mm3 (3.80-5.20); White Blood Cell Count 8.28 K/mm3 (4.00-11.30)
[2020-06-02 10:12] LABS: Alanine Aminotransfer (ALT/SGP 22 U/L (12-78); Albumin, Blood 3.1 g/dL (3.4-5.0); Albumin/Globulin Ratio 0.7 (0.8-1.8); Alk Phos 102 U/L (50-136); Anion Gap 4 mmol/L (6-16); Aspartate Aminotrans (AST/SGOT 16 U/L (12-37); Bilirubin, Total 0.3 mg/dL (0.1-1.0); Blood Urea Nitrogen 14 mg/dL (8-24); Bun/Creatinine Ratio 16.5 (12.0-20.0); CO2, Blood 32 mmol/L (21-32); Calcium, Blood 9.1 mg/dL (8.5-10.1); Chloride, Blood 104 mmol/L (98-108); Creatinine, Blood 0.85 mg/dL (0.40-1.00); Globulin, Blood 4.2 g/dL (2.2-4.0); Glomerular Filtration Rate >60 (60-); Glucose, Blood 144 mg/dL (70-99); Potassium, Blood 3.6 mmol/L (3.5-5.5); Sodium, Blood 140 mmol/L (136-145); Total Protein, Blood 7.3 g/dL (6.4-8.2); Troponin I <0.015 ng/mL (0.000-0.040)
== END 2020-06-02 12:46 | disposition home or self-care (01) ==
LOC: ER 08:49
PROVIDERS: Physician Assistant
DX: R06.02 Shortness of breath (principal); T50.Z95A Adverse effect of other vaccines and biological substances, initial encounter; I10 Essential (primary) hypertension; E11.9 Type 2 diabetes mellitus without complications; E03.9 Hypothyroidism, unspecified; E78.00 Pure hypercholesterolemia, unspecified; J44.9 Chronic obstructive pulmonary disease, unspecified; Z79.899 Other long term (current) drug therapy; Z79.4 Long term (current) use of insulin; Z88.5 Allergy status to narcotic agent; Z88.8 Allergy status to other drugs, medicaments and biological substances; Z87.891 Personal history of nicotine dependence
CPT/HCPCS: 36415; 71045; 71260; 80053; 83880; 84484; 85025; 93005; 93010; 99285-25; Q9967